=== PATIENT | male | born 1955 | race African-American/Black ===

== ENCOUNTER 2018-10-28 15:37 | Emergency (ER) | payer OTHER ==
--- NOTE | 2018-10-28 15:41 | ER Report ---
History and Physical Time Seen By MD: 15:40 HPI/ROS CHIEF COMPLAINT: Shortness breath, exertional dyspnea, orthopnea HISTORY OF PRESENT ILLNESS: Patient is a 63-year-old male with a history of cigarette smoking, CHF on intermittently on furosemide, hypertension here with complaints of several weeks of persistent progressive dyspnea worse with exertion and laying flat. SPO2 90% on room air, afebrile, hemodynamically stable otherwise. Patient does report a previous history of a viral heart infection suspected to be myocarditis with diminished EF which has reportedly resolved per patient report. EKG showed no ischemic changes at time of evaluation. REVIEW OF SYSTEMS: Constitutional: No fever, no chills. Eyes: No discharge. ENT: No sore throat. Cardiovascular: No chest pain, no palpitations. Respiratory: + Nonproductive cough, + shortness of breath. Gastrointestinal: No abdominal pain, no vomiting. Genitourinary: No hematuria. Musculoskeletal: No back pain. Skin: No rashes. Neurological: No headache. Allergies: Coded Allergies: No Known Drug Allergies (Unverified , 10/28/18) Home Meds Active Scripts Albuterol Sulfate 90 Mcg/Act (PROAIR HFA 90 MCG/ACT) 8.5 Gm Hfa.aer.ad, 2 PUFF I H Q4-6H, #1 INHALER Prov:ASTON CASE DO 10/28/18 Azithromycin (Z-PACK) 250 Mg Tablet, 0 PO QDAY, #6 DOSE-PACK Prov:ASTON CASE DO 10/28/18 Prednisone (PREDNISONE) 50 Mg Tablet, 50 MG PO QDAY for 4 Days, #4 TAB Prov:ASTON CASE DO 10/28/18 Reported Medications Fexofenadine Hcl (TAMELA ALLERGY) 60 Mg Tablet, 30 MG PO BID 10/28/18 Furosemide (LASIX) 20 Mg Tablet, 1 TAB PO PRN, TAB 10/28/18 Montelukast Sodium (SINGULAIR) 10 Mg Tablet, 1 TAB PO QDAY, TAB 10/28/18 Bimatoprost (LUMIGAN) 2.5 Ml Drops, 2.5 ML OP 10/28/18 Amlodipine Besylate (AMLODIPINE BESYLATE) 5 Mg Tablet, 0.5 TAB PO QDAY, TAB 10/28/18 Metoprolol Succinate (METOPROLOL SUCCINATE) 50 Mg Tab.er.24h, 4 TAB PO QDAY, TAB 10/28/18 Lisinopril (LISINOPRIL) 40 Mg Tablet, 40 MG PO QDAY, TAB 10/28/18 Constitutional Vital Sign - Last 24 Hours 10/28/18 10/28/18 10/28/18 10/28/18 15:43 16:00 16:13 16:13 Temp 98.3 Pulse 56 62 48 Resp 20 18 16 B/P (MAP) 186/114 166/102 (123) Pulse Ox 90 91 96 O2 Delivery Room Air Room Air 10/28/18 10/28/18 10/28/18 10/28/18 16:30 16:37 17:00 17:30 Pulse 53 56 64 63 Resp 35 16 31 12 B/P (MAP) 167/90 (115) 145/92 (109) 146/115 (125) Pulse Ox 99 90 85 10/28/18 17:47 Pulse Ox 81 O2 Delivery Room Air Physical Exam General Appearance: The patient is alert, has no immediate need for airway protection and no signs of toxicity. Uncomfortable appearing Eyes: Pupils equal and round no pallor or injection. ENT, Mouth: Mucous membranes are moist. Respiratory: + Decreased thoracic excursion, lungs clear to auscultation. Cardiovascular: Regular rate and rhythm. Gastrointestinal: Abdomen is soft and non tender, no masses, bowel sounds normal. Neurological: No focal deficits Skin: Warm and dry, no rashes. Musculoskeletal: Neck is supple non tender. Extremities are nontender, nonswollen and have full range of motion. DIFFERENTIAL DIAGNOSIS: After history and physical exam differential diagnosis was considered for shortness of breath including but not limited to pulmonary infectious process, COPD, asthma, pulmonary embolus and congestive heart failure. Medical Decision Making Data Points Result Diagram: 10/28/18 1548 10/28/18 1548 Laboratory Hematology Test 10/28/18 15:48 Red Blood Count 5.36 M/uL (4.00-5.60) Mean Corpuscular Volume 88.4 fL (80.0-96.0) Mean Corpuscular Hemoglobin 29.6 pg (26.0-33.0) Mean Corpuscular Hemoglobin Concent 33.5 g/dL (32.0-36.0) Red Cell Distribution Width 15.0 % (11.5-14.5) Mean Platelet Volume 9.9 fL (7.2-11.1) Neutrophils (%) (Auto) 36.9 % (39.4-72.5) Lymphocytes (%) (Auto) 47.7 % (17.6-49.6) Monocytes (%) (Auto) 7.9 % (4.1-12.4) Eosinophils (%) (Auto) 6.0 % (0.4-6.7) Basophils (%) (Auto) 1.5 % (0.3-1.4) Nucleated RBC Relative Count (auto) 0.1 /100WBC Neutrophils # (Auto) 1.9 K/uL (2.0-7.4) Lymphocytes # (Auto) 2.5 K/uL (1.3-3.6) Monocytes # (Auto) 0.4 K/uL (0.3-1.0) Eosinophils # (Auto) 0.3 K/uL (0.0-0.5) Basophils # (Auto) 0.1 K/uL (0.0-0.1) Nucleated RBC Absolute Count (auto) 0.01 K/uL Prothrombin Time 12.6 seconds (12.0-14.4) Prothromb Time International Ratio 0.94 Activated Partial Thromboplast Time 30 seconds (23-35) D-Dimer Quantitative (PE/DVT) 0.35 ug/ml (0-0.50) Blood Gas Patient Temperature 98.3 DEGREES Venous Blood pH 7.38 (7.31-7.41) Venous Blood Partial Pressure CO2 45 mmHg Venous Blood Partial Pressure O2 < 35 mmHg Venous Blood HCO3 27 mmol/L Venous Blood Oxygen Saturation 25 % Venous Blood Base Excess 2 mmol/L Oxygen Liters/Minute Room air Sodium Level 142 mmol/L (137-145) Potassium Level 4.0 mmol/L (3.5-5.0) Chloride Level 107 mmol/L (98-107) Carbon Dioxide Level 28 mmol/L (22-30) Blood Urea Nitrogen 17 mg/dl (9-21) Creatinine 1.70 mg/dl (0.66-1.25) Glomerular Filtration Rate Calc 41.2 Random Glucose 92 mg/dl (75-110) Calcium Level 9.4 mg/dl (8.4-10.2) Total Bilirubin 0.1 mg/dl (0.2-1.3) Aspartate Amino Transf (AST/SGOT) 20 U/L (0-35) Alanine Aminotransferase (ALT/SGPT) 26 U/L (0-56) Alkaline Phosphatase 88 U/L (0-126) Troponin I < 0.012 ng/ml B-Type Natriuretic Peptide 68 pg/ml (0-100) Total Protein 7.1 g/dl (6.3-8.2) Albumin 4.0 g/dl (3.5-5.0) Chemistry Test 10/28/18 15:48 White Blood Count 5.2 k/uL (4.5-11.0) Red Blood Count 5.36 M/uL (4.00-5.60) Hemoglobin 15.9 g/dL (14.0-18.0) Hematocrit 47.4 % (42.0-52.0) Mean Corpuscular Volume 88.4 fL (80.0-96.0) Mean Corpuscular Hemoglobin 29.6 pg (26.0-33.0) Mean Corpuscular Hemoglobin Concent 33.5 g/dL (32.0-36.0) Red Cell Distribution Width 15.0 % (11.5-14.5) Platelet Count 206 K/uL (150-450) Mean Platelet Volume 9.9 fL (7.2-11.1) Neutrophils (%) (Auto) 36.9 % (39.4-72.5) Lymphocytes (%) (Auto) 47.7 % (17.6-49.6) Monocytes (%) (Auto) 7.9 % (4.1-12.4) Eosinophils (%) (Auto) 6.0 % (0.4-6.7) Basophils (%) (Auto) 1.5 % (0.3-1.4) Nucleated RBC Relative Count (auto) 0.1 /100WBC Neutrophils # (Auto) 1.9 K/uL (2.0-7.4) Lymphocytes # (Auto) 2.5 K/uL (1.3-3.6) Monocytes # (Auto) 0.4 K/uL (0.3-1.0) Eosinophils # (Auto) 0.3 K/uL (0.0-0.5) Basophils # (Auto) 0.1 K/uL (0.0-0.1) Nucleated RBC Absolute Count (auto) 0.01 K/uL Prothrombin Time 12.6 seconds (12.0-14.4) Prothromb Time International Ratio 0.94 Activated Partial Thromboplast Time 30 seconds (23-35) D-Dimer Quantitative (PE/DVT) 0.35 ug/ml (0-0.50) Blood Gas Patient Temperature 98.3 DEGREES Venous Blood pH 7.38 (7.31-7.41) Venous Blood Partial Pressure CO2 45 mmHg Venous Blood Partial Pressure O2 < 35 mmHg Venous Blood HCO3 27 mmol/L Venous Blood Oxygen Saturation 25 % Venous Blood Base Excess 2 mmol/L Oxygen Liters/Minute Room air Glomerular Filtration Rate Calc 41.2 Calcium Level 9.4 mg/dl (8.4-10.2) Total Bilirubin 0.1 mg/dl (0.2-1.3) Aspartate Amino Transf (AST/SGOT) 20 U/L (0-35) Alanine Aminotransferase (ALT/SGPT) 26 U/L (0-56) Alkaline Phosphatase 88 U/L (0-126) Troponin I < 0.012 ng/ml B-Type Natriuretic Peptide 68 pg/ml (0-100) Total Protein 7.1 g/dl (6.3-8.2) Albumin 4.0 g/dl (3.5-5.0) Coagulation Test 10/28/18 15:48 Prothrombin Time 12.6 seconds Prothromb Time International Ratio 0.94 Activated Partial Thromboplast Time 30 seconds D-Dimer Quantitative (PE/DVT) 0.35 ug/ml EKG/Imaging EKG Interpretation 12 lead EKG: Sinus bradycardia with ventricular rate 54, QTC 445, no ischemic changes or arrhythmias present Rhythm: Sinus bradycardia Farley: normal QRS: normal ST segments: normal Imaging PATIENT NAME: Lobo Adams : 1955 MR: [id number] V: [id number] EXAM DATE: ORDERING PHYSICIAN: ASTON CASE TECHNOLOGIST: Location: [facility] Patient: Lobo Adams : 1955 Visit/Account:[id number] Date of Sevice: 10/28/2018 CHEST PA LAT INDICATION: RESP DISTRESS COMPARISON: None available FINDINGS: Heart size within normal limits. There is mild pulmonary vascular congestion. There is no focal infiltrate or lobar consolidation. There is no pneumothorax or pleural effusion. IMPRESSION: 1. Mild pulmonary vascular congestion without overt failure ED Course/Re-evaluation ED Course Patient is a 63-year-old male with a prior history of CHF, suspected COPD due to prior smoking history, decreased ejection fraction after what seems to be myocarditis after a viral infection. Patient was given DuoNeb, prednisone, fluid bolus. Patient was noted to have mild hypoxia with oxygen saturations of 87% on room air which remained stable around 90% on ambulation. Chest x-ray showed mild pulmonary congestion with no consolidation. Patient was given an incentive spirometer to maximize pulmonary excursion due to recent history of cartilage tearing which seemingly has diminished his thoracic excursion. Patient is given prescription for prednisone 4 day course, Z-Michael, supplemental oxygen in the interim until patient is able to follow-up with his PCP and cardiology for further evaluation and outpatient setting. VBG was unremarkable. Patient did not have a leukocytosis, electrolytes were unremarkable. Return precautions were pr ovided. Prescription for albuterol inhaler provided. Patient was updated regarding these findings and voiced understanding of plan. Decision to Disposition Date: October 28, 2018 Decision to Disposition Time: 17:57 Depart Departure Latest Vital Signs Vital Signs Date Time Temp Pulse Resp B/P (MAP) Pulse Ox O2 Delivery O2 Flow Rate FiO2 10/28/18 17:47 81 Room Air 10/28/18 17:30 63 12 146/115 (125) 10/28/18 15:43 98.3 Impression: Primary Impression: Hypoxia Additional Impression: Dyspnea Condition: Improved Disposition: HOME OR SELF-CARE New Scripts Albuterol Sulfate 90 Mcg/Act (PROAIR HFA 90 MCG/ACT) 8.5 Gm Hfa.aer.ad 2 PUFF IH Q4-6H, #1 INHALER Prov: ASTON CASE DO 10/28/18 Azithromycin (Z-PACK) 250 Mg Tablet 0 PO QDAY, #6 DOSE-PACK Prov: ASTON CASE DO 10/28/18 Prednisone (PREDNISONE) 50 Mg Tablet 50 MG PO QDAY for 4 Days, #4 TAB Prov: ASTON CASE DO 10/28/18 Departure Forms: ER Transition Record, Home Oxygen, Nebulizer RX, Home Oxygen Company Chosen by Patient: Durable Medical Equipment-Oxygen: Portable Oxygen Gas Reason for Use/Diagnosis: Hypoxia, increasing dyspnea, COPD exacerbation Medications Reconciliation, Patient Portal Information Patient Instructions: Dyspnea (GEN) Additional Instructions: Please follow-up with your primary care provider and cardiology within the next 24-48 hours. Please return immediately if you develop increasing shortness breath, fevers, chills, chest pains, nausea, vomiting. Please take 50 mg of prednisone daily for the next 4 days, please take Z-Michael as prescribed. Please utilize your incentive spirometer in order to maximize lung expansion and avoid pulmonary infection. Please use supplemental oxygen until you're able to follow- up with her primary care provider. Problem Qualifiers ASTON CASE DO October 28, 2018 15:41
[2018-10-28] MEDS ORDERED: METO50TA19 PO (15:49)
[2018-10-28] MEDS ORDERED: FEXO-72 PO (15:49)
[2018-10-28] MEDS ORDERED: BIMA2.5D5 OP (15:49)
[2018-10-28] MEDS ORDERED: FURO20TA19 PO (15:49)
[2018-10-28] MEDS ORDERED: MONT10TA PO (15:49)
[2018-10-28] MEDS ORDERED: LISI-374 PO (15:49)
[2018-10-28] MEDS ORDERED: AMLO-125 PO (15:49)
[2018-10-28] MEDS ORDERED: NS(*) 0.9% 500 ML BAG 500 ML IV ONE (15:55)
[2018-10-28] MEDS ORDERED: predniSONE 20 MG TAB PO ONE (15:55)
--- NOTE | 2018-10-28 16:00 | EKG ---
FACILITY: [facility] PATIENT NAME: ZEINA PEREZ : [id number] MR: [id number] V: [id number] EXAM DATE: ORDERING PHYSICIAN: ASTON CASE TECHNOLOGIST: RETA Test Reason : SOB Blood Pressure : / mmHG Vent. Rate : 054 BPM Atrial Rate : 054 BPM P-R Int : 142 ms QRS Dur : 092 ms QT Int : 470 ms P-R-T Axes : 063 -07 028 degrees QTc Int : 445 ms Sinus bradycardia Nonspecific ST and T wave abnormality Abnormal ECG No previous ECGs available Confirmed by Addy Kenney ([id number]) on 10/28/2018 8:00:33 PM Referred By: MANPREET Confirmed By:Addy Rosales
[2018-10-28 16:12] LABS: PLATELET COUNT, AUTOMATED 206 K/uL (150-450)
[2018-10-28] MEDS: ALBUTEROL/IPRATROPIUM 3 ML NEB NEB SCH ×2 (16:12→16:30)
[2018-10-28 16:17] LABS: INR 0.94
--- NOTE | 2018-10-28 17:17 | RADIOLOGY IMAGING REPORT ---
FACILITY: [facility] PATIENT NAME: Lobo Adams : 1955 MR: [id number] V: [id number] EXAM DATE: ORDERING PHYSICIAN: ASTON CASE TECHNOLOGIST: Location: [facility] [place] Patient: Lobo Adams : 1955 Visit/Account:[id number] Date of Sevice: 10/28/2018 CHEST PA LAT INDICATION: RESP DISTRESS COMPARISON: None available FINDINGS: Heart size within normal limits. There is mild pulmonary vascular congestion. There is no focal infiltrate or lobar consolidation. There is no pneumothorax or pleural effusion. IMPRESSION: 1. Mild pulmonary vascular congestion without overt failure Report Dictated By: Octavio Corral at 10/28/2018 5:12 PM Report E-Signed By: Octavio Corral at 10/28/2018 5:13 PM [id number]
[2018-10-28] MEDS ORDERED: ALBU8.5H IH (17:53)
[2018-10-28] MEDS ORDERED: AZIT-17 PO (17:53)
[2018-10-28] MEDS ORDERED: PRED50TA22 PO (17:53)
[2018-10-28 18:30] VITALS: BP 131/69
== END 2018-10-28 20:00 | disposition home or self-care (01) ==
LOC: ER 16:09
DX: R09.02 Hypoxemia (principal); R06.00 Dyspnea, unspecified
CPT/HCPCS: 71046; 82803; 83880; 84484; 85025; 85379; 85610; 85730; 93005; 94640; 96360; 99284; J7040; J7512; J7620; 82040; 82247; 82310; 82374; 82435; 82565; 82947; 84075; 84132; 84155; 84295; 84450; 84460; 84520

== ENCOUNTER 2019-01-09 18:03 | Observation (INO) | payer OTHER ==
[~2019-01-09] VITALS: Ht 182.9 cm; Wt 59.0 kg
[~2019-01-09 18:03] MED LIST: ALBU8.5H IH; AMLO-125 PO; AZIT-17 PO; BIMA2.5D5 OP; FEXO-72 PO; FURO20TA19 PO; LISI-374 PO; METO50TA19 PO; MONT10TA PO; PRED50TA22 PO
--- NOTE | 2019-01-09 18:22 | ER Report ---
History and Physical Time Seen By MD: 18:19 HPI/ROS CHIEF COMPLAINT: heat exhaustion and dehydration HISTORY OF PRESENT ILLNESS: This is a 63 year old male. He came to the ER today, brought in by a friend. He says he is dehydrated and has not had anything to drink since 0600 yesterday. Had been at a property outside of town, cutting grass, cleaning trailer with many mice and horrible state. He has been short of breath, he thinks maybe allergies, or mild COPD. He also has history of heart failure and is worried about his heart. Altered mental status, often talking in circles and not able to give details. Starts to become very emotional and talks about past meth use and had friends last night that gave him "liliya". He said he wanted to try Ecstasy, but they did not have any. He thinks what he took may have had meth in it. He is not oriented to date, but to self and place. He denies fevers or chills. He denies any pain. He denies headache. He has not urinated today. Denies diarrhea. REVIEW OF SYSTEMS: Other than above, negative or unable to obtain Allergies: Coded Allergies: No Known Drug Allergies (Unverified , 01/09/19) Home Meds Active Scripts Albuterol Sulfate 90 Mcg/Act (PROAIR HFA 90 MCG/ACT) 8.5 Gm Hfa.aer.ad, 2 PUFF IH Q4-6H, #1 INHALER Prov:ASTON CASE DO 10/28/18 Azithromycin (Z-PACK) 250 Mg Tablet, 0 PO QDAY, #6 DOSE-PACK Prov:ASTON CASE DO 10/28/18 Prednisone (PREDNISONE) 50 Mg Tablet, 50 MG PO QDAY for 4 Days, #4 TAB Prov:ASTON CASE DO 10/28/18 Reported Medications Fexofenadine Hcl (TAMELA ALLERGY) 60 Mg Tablet, 30 MG PO BID 10/28/18 Furosemide (LASIX) 20 Mg Tablet, 1 TAB PO PRN, TAB 10/28/18 Montelukast Sodium (SINGULAIR) 10 Mg Tablet, 1 TAB PO QDAY, TAB 10/28/18 Bimatoprost (LUMIGAN) 2.5 Ml Drops, 2.5 ML OP 10/28/18 Amlodipine Besylate (AMLODIPINE BESYLATE) 5 Mg Tablet, 0.5 TAB PO QDAY, TAB 10/28/18 Metoprolol Succinate (METOPROLOL SUCCINATE) 50 Mg Tab.er.24h, 4 TAB PO QDAY, TAB 10/28/18 Lisinopril (LISINOPRIL) 40 Mg Tablet, 40 MG PO QDAY, TAB 10/28/18 Reviewed Nurses Notes: Yes Constitutional Vital Sign - Last 24 Hours 01/09/19 01/09/19 01/09/19 01/09/19 18:10 18:18 18:30 18:33 Temp 97.8 Pulse 77 76 57 Resp 16 28 13 B/P (MAP) 149/96 155/94 (114) Pulse Ox 90 97 94 O2 Delivery Room Air 01/09/19 01/09/19 01/09/19 01/09/19 18:48 18:57 18:57 19:03 Pulse 55 49 80 Resp 11 20 18 Pulse Ox 100 95 99 O2 Delivery Nasal Cannula O2 Flow Rate 2.0 01/09/19 01/09/19 01/09/19 01/09/19 19:11 19:18 19:38 19:48 Pulse 50 86 84 Resp 18 32 17 B/P (MAP) 187/122 (143) Pulse Ox 98 93 01/09/19 01/09/19 01/09/19 01/09/19 20:00 20:05 20:20 20:30 Pulse 75 60 Resp 41 18 B/P (MAP) 172/120 (137) 180/107 (131) Pulse Ox 73 97 01/09/19 01/09/19 01/09/19 01/09/19 20:35 20:40 20:55 21:00 Pulse 64 64 67 Resp 19 18 22 B/P (MAP) 177/100 (125) Pulse Ox 95 84 97 01/09/19 01/09/19 01/09/19 01/09/19 21:10 21:25 21:30 21:40 Pulse 62 62 60 Resp 20 18 18 B/P (MAP) 169/109 (129) Pulse Ox 94 97 89 01/09/19 01/09/19 01/09/19 01/09/19 21:55 22:00 22:30 23:00 Pulse 49 52 58 77 Resp 16 18 18 31 B/P (MAP) 148/87 (107) 119/79 (92) 150/115 (127) Pulse Ox 100 100 100 01/09/19 01/10/19 23:30 00:00 Pulse 80 Resp 10 B/P (MAP) 150/97 (114) Pulse Ox 94 Intake and Output 01/09/19 01/09/19 01/10/19 15:03 23:03 07:03 Intake Total 1000 ml Balance 1000 ml Physical Exam General Appearance: The patient is alert. No immediate need for airway protection. Very emotionally labile, crying at times. Very tangential in his speech. Eyes: Pupils are equal, round. Reactive to light. No pallor, injection or icterus. Extraocular movements are intact. ENT: Mucous membranes are dry. Normal oral mucosa. Posterior oropharynx is normal. Normal tympanic membranes and canals. Neck: Supple and non tender. Respiratory: Lungs had some mild expiratory wheezes, improved after DuoNeb treatment and Solu-Medrol. Normal oxygen saturations while awake, but desats a little with sleeping. Cardiovascular: Regular rate and rhythm. No murmurs, gallops or rubs. Normal capillary refill. No edema. Gastrointestinal: Abdomen is soft and non tender. Nondistended. Normal active bowel sounds. No CVA tenderness. Neurological: Alert and oriented x2. Cranial nerves II through XII show no acute deficits on my exam. No focal neurologic deficits in the extremities. Skin: Warm and dry. No rashes. Musculoskeletal: Extremities are nontender. No tenderness in palpation of the cervical, thoracic and lumbar spine. DIFFERENTIAL DIAGNOSIS: After history and physical exam, differential diagnosis was considered for patient with some confusion with report of dehydration, and some shortness of breath. Medical Decision Making Data Points Result Diagram: 01/09/19 1812 01/09/19 1812 Laboratory Hematology Test 01/09/19 18:12 White Blood Count 6.2 k/uL (4.5-11.0) Red Blood Count 5.25 M/uL (4.00-5.60) Hemoglobin 16.0 g/dL (14.0-18.0) Hematocrit 46.7 % (42.0-52.0) Mean Corpuscular Volume 89.1 fL (80.0-96.0) Mean Corpuscular Hemoglobin 30.5 pg (26.0-33.0) Mean Corpuscular Hemoglobin Concent 34.2 g/dL (32.0-36.0) Red Cell Distribution Width 14.1 % (11.5-14.5) Platelet Count 198 K/uL (150-450) Mean Platelet Volume 9.3 fL (7.2-11.1) Neutrophils (%) (Auto) 63.2 % (39.4-72.5) Lymphocytes (%) (Auto) 23.5 % (17.6-49.6) Monocytes (%) (Auto) 11.1 % (4.1-12.4) Eosinophils (%) (Auto) 1.8 % (0.4-6.7) Basophils (%) (Auto) 0.4 % (0.3-1.4) Nucleated RBC Relative Count (auto) 0.0 /100WBC Neutrophils # (Auto) 3.9 K/uL (2.0-7.4) Lymphocytes # (Auto) 1.5 K/uL (1.3-3.6) Monocytes # (Auto) 0.7 K/uL (0.3-1.0) Eosinophils # (Auto) 0.1 K/uL (0.0-0.5) Basophils # (Auto) 0.0 K/uL (0.0-0.1) Nucleated RBC Absolute Count (auto) 0.00 K/uL Chemistry Test 01/09/19 18:12 Sodium Level 140 mmol/L (137-145) Potassium Level 3.5 mmol/L (3.5-5.0) Chloride Level 103 mmol/L (98-107) Carbon Dioxide Level 24 mmol/L (22-30) Blood Urea Nitrogen 27 mg/dl (9-21) Creatinine 1.80 mg/dl (0.66-1.25) Glomerular Filtration Rate Calc 38.6 Random Glucose 90 mg/dl (75-110) Lactate 1.0 mmol/L (0.7-2.1) Calcium Level 9.3 mg/dl (8.4-10.2) Total Bilirubin 0.7 mg/dl (0.2-1.3) Aspartate Amino Transf (AST/SGOT) 48 U/L (0-35) Alanine Aminotransferase (ALT/SGPT) 42 U/L (0-56) Alkaline Phosphatase 86 U/L (0-126) Troponin I < 0.012 ng/ml C-Reactive Protein 1.8 mg/dl (<1.0) B-Type Natriuretic Peptide 48 pg/ml (0-100) Total Protein 7.7 g/dl (6.3-8.2) Albumin 4.5 g/dl (3.5-5.0) Toxicology Test 01/09/19 18:12 Serum Alcohol < 10 mg/dl EKG/Imaging Imaging CT Head without contrast Indication: Altered mental status. Comparison: None available. Technique: Axial CT images were obtained through the brain from the skull base to the vertex without administration of IV contrast. One of the following dose optimization techniques was utilized in the performance of this exam: Automated exposure control; adjustment of the mA and/or kV according to the patient's size; or use of an iterative reconstruction technique. Specific details can be referenced in the facility's radiology CT exam operational policy. Findings: No evidence of suspicious mass, mass effect, or midline shift. No acute intracranial hemorrhage or acute territorial infarction. Somewhat prominent calcification along the anterior aspect of the falx with no significant mass effect. Mild cerebral volume loss. Small amount of multifocal white matter hypoattenuation likely related to chronic small vessel ischemic disease. Skull is nonacute. Globes and orbits are unremarkable. The visualized paranasal sinuses and mastoid air spaces are clear. IMPRESSION: 1. No acute intracranial abnormality. 2. Mild cerebral volume loss and suspected chronic White matter disease. Report Dictated By: Giuseppe Shah MD at 01/09/2019 11:51 PM CHEST SINGLE AP Indication: Shortness of breath.. Comparison: 10/28/2018. Findings: Cardiomediastinal silhouette and pulmonary vessels within normal limits for the technique. There is no focal infiltrate or lobar consolidation. No pneumothorax or pleural effusion. No nodule. Upper abdomen is unremarkable. No acute bony abnormality. IMPRESSION: 1. No acute cardiopulmonary process. Report Dictated By: Yan Barrera at 01/09/2019 7:55 PM ED Course/Re-evaluation Clinical Indication for ER IV: Hydration, IV Access ED Course After DuoNeb and Solu-Medrol, the patient's breathing was much better. No hypoxi a other when he sleeping and he requires a couple liters of oxygen. Later on during his stay, he did talk about taking an unknown recreational substance that sounds like ecstasy. We gave him a liter of normal saline as a bolus and then a slow second liter to make sure he didn't fluid overload him. X-ray and labs fairly unremarkable. Discussed the case with our hospitalist who came to the ER to evaluate. We added a head CT which was negative. Chest x-ray negative. Admitted to [facility] [place] for some mild altered mental status. Dehydration seems like it's better with the fluids given and will do oral fluids at this point. Decision to Disposition Date: Jan 10, 2019 Decision to Disposition Time: 23:02 Depart Departure Latest Vital Signs Vital Signs Date Time Temp Pulse Resp B/P (MAP) Pulse Ox O2 Delivery O2 Flow Rate FiO2 01/10/19 00:00 80 10 94 01/09/19 23:30 150/97 (114) 01/09/19 18:57 Nasal Cannula 2.0 01/09/19 18:10 97.8 Impression: Primary Impression: Dehydration after exertion Additional Impression: Altered mental status, unspecified Condition: Improved Disposition: Admitted from ER Problem Qualifiers Additional Impression: Altered mental status, unspecified Altered mental status type: unspecified Qualified Codes: R41.82 - Altered mental status, unspecified SHAKIRA MOISE MD Jan 09, 2019 18:22
[2019-01-09] MEDS ORDERED: NS(*) 0.9% 1000 ML BAG 1,000 ML IV ONE (18:30)
[2019-01-09] MEDS ORDERED: ALBUTEROL/IPRATROPIUM 3 ML NEB NEB ONE (18:35)
[2019-01-09 18:40] LABS: PLATELET COUNT, AUTOMATED 198 K/uL (150-450)
[2019-01-09] MEDS ORDERED: methylPREDNIS SUCC 125 MG/2ML IVP ONE (19:00)
--- NOTE | 2019-01-09 20:04 | RADIOLOGY IMAGING REPORT ---
FACILITY[place] [facility] [place] PATIENT NAME: Lobo Adams : 1955 MR: [id number] V: [id number] EXAM DATE: ORDERING PHYSICIAN: SHAKIRA MOISE TECHNOLOGIST: Location: [facility] Patient: Lobo Adams : 1955 Visit/Account:[id number] Date of Sevice: 01/09/2019 CHEST SINGLE AP Indication: Shortness of breath.. Comparison: 10/28/2018. Findings: Cardiomediastinal silhouette and pulmonary vessels within normal limits for the technique. There is no focal infiltrate or lobar consolidation. No pneumothorax or pleural effusion. No nodule. Upper abdomen is unremarkable. No acute bony abnormality. IMPRESSION: 1. No acute cardiopulmonary process. Report Dictated By: Yan Barrera at 01/09/2019 7:55 PM Report E-Signed By: Yan Barrera at 01/09/2019 7:56 PM WSN:[id number]
[2019-01-09] MEDS ORDERED: INFLUENZA VIRUS VAC 0.5ML SYR IM ONLY ONE (23:30)
[2019-01-09] MEDS ORDERED: ALBUTEROL 2.5 MG/3 ML NEB NEB PRN (23:30)
[2019-01-09] MEDS ORDERED: LORazepam 2 MG/ML VIAL IVP PRN (23:30)
[2019-01-09] MEDS ORDERED: amLODIPine BESYL(*) 5 MG TAB PO SCH (23:30)
[2019-01-09] MEDS ORDERED: hydrOXYzine 25 MG TAB PO ONE (23:30)
--- NOTE | 2019-01-10 00:03 | RADIOLOGY IMAGING REPORT ---
FACILITY: [facility] PATIENT NAME: Lobo Adams : 1955 MR: [id number] V: [id number] EXAM DATE: ORDERING PHYSICIAN: SHAKIRA MOISE TECHNOLOGIST: Location: [facility] [place] Patient: Lobo Adams : 1955 Visit/Account:[id number] Date of Sevice: 01/09/2019 CT Head without contrast Indication: Altered mental status. Comparison: None available. Technique: Axial CT images were obtained through the brain from the skull base to the vertex without administration of IV contrast. One of the following dose optimization techniques was utilized in th e performance of this exam: Automated exposure control; adjustment of the mA and/or kV according to t he patient's size; or use of an iterative reconstruction technique. Specific details can be referen antoinette in the facility's radiology CT exam operational policy. Findings: No evidence of suspicious mass, mass effect, or midline shift. No acute intracranial hemorrhage or acute territorial infarction. Somewhat prominent calcification along the anterior aspect of the falx with no significant mass effec t. Mild cerebral volume loss. Small amount of multifocal white matter hypoattenuation likely related to chronic small vessel ischemic disease. Skull is nonacute. Globes and orbits are unremarkable. The visualized paranasal sinuses and mastoid air spaces are clear. IMPRESSION: 1. No acute intracranial abnormality. 2. Mild cerebral volume loss and suspected chronic White matter disease. Report Dictated By: Giuseppe Shah MD at 01/09/2019 11:51 PM Report E-Signed By: Giuseppe Shah MD at 01/09/2019 11:56 PM WSN:[id number]
--- NOTE | 2019-01-10 00:11 | History & Physical ---
History of Present Illness History of Present Illness 63yo male with a h/o HFrEF, COPD, and HIV who came to the ER for confusion. The history is from the ER provider and some from the patient. There was a friend who brought him to the ER, but had left. Either today or yesterday, he was cleaning out a trailer home that was very dirty and full of mice for most of the day. He didn't drink any water, so was concerned about heat exhaustion. The patient reports that either today or yesterday, he took some ecstasy that he got from his nephew. He had many hallucinations that were plausible and upsetting. He last drank alcohol a couple nights ago and drinks occasionally. He does have a h/o methamphetamine use, but has been clean since 2016. He reports that he has mild some right flank pain that started in the ER. He denies chills, neck pain, chest pain, SOB, LE edema. He has a mild headache and nausea. He chronically has loose stools which is unchanged. When he first got to the ER, he reported some SOB. He received 2 liters of IVF, methylprednisolone and a DuoNeb. History Problems: (1) HIV (human immunodeficiency virus infection) Status: Chronic (2) HFrEF (heart failure with reduced ejection fraction) Status: Chronic (3) HTN (hypertension) Status: Chronic (4) Depression Status: Chronic Home Meds Active Scripts Albuterol Sulfate 90 Mcg/Act (PROAIR HFA 90 MCG/ACT) 8.5 Gm Hfa.aer.ad, 2 PUFF IH Q4-6H, #1 INHALER Prov:ASTON CASE DO 10/28/18 Azithromycin (Z-PACK) 250 Mg Tablet, 0 PO QDAY, #6 DOSE-PACK Prov:ASTON CASE DO 10/28/18 Prednisone (PREDNISONE) 50 Mg Tablet, 50 MG PO QDAY for 4 Days, #4 TAB Prov:ASTON CASE DO 10/28/18 Reported Medications Fexofenadine Hcl (TAMELA ALLERGY) 60 Mg Tablet, 30 MG PO BID 10/28/18 Furosemide (LASIX) 20 Mg Tablet, 1 TAB PO PRN, TAB 10/28/18 Montelukast Sodium (SINGULAIR) 10 Mg Tablet, 1 TAB PO QDAY, TAB 10/28/18 Bimatoprost (LUMIGAN) 2.5 Ml Drops, 2.5 ML OP 10/28/18 Amlodipine Besylate (AMLODIPINE BESYLATE) 5 Mg Tablet, 0.5 TAB PO QDAY, TAB 10/28/18 Metoprolol Succinate (METOPROLOL SUCCINATE) 50 Mg Tab.er.24h, 4 TAB PO QDAY, TAB 10/28/18 Lisinopril (LISINOPRIL) 40 Mg Tablet, 40 MG PO QDAY, TAB 10/28/18 Allergies: Coded Allergies: No Known Drug Allergies (Unverified , 01/09/19) Review of Systems Other Limited based on his mental status Exam Vital Signs Vital Signs Date Time Temp Pulse Resp B/P (MAP) Pulse Ox O2 Delivery O2 Flow Rate FiO2 01/09/19 21:55 49 16 100 01/09/19 21:30 169/109 (129) 01/09/19 18:57 Nasal Cannula 2.0 01/09/19 18:10 97.8 General Appearance: Other (Eyes are closed. Breathing comfortably. Tearful) Neuro: Other (He knows where he is, the month and the day of the week. He thought it was 2009. He has not facial droop. He has symmetric extremity strength. He is tangential with answers. Answers are very rambling and difficult to follow. Unable to give any clear details about the couple days before admission.) Eyes: Other (Haziness in pupils bilaterally. Appear equal) ENT: Oropharynx Clear (tacky mm), Posterior Pharynx Clear Neck: Other (Able to touch his chin to chest without pain) Cardiovascular: Regular Rate and Rhythm (borderline velma) Respiratory: Clear to Auscultation GI: Abd Soft and Non-Tender (but he will wince with movements and initial palpation. However, once he is used to the palpation, he doesn't wince anymore) : No CVA Tenderness Extremities: No Edema Integumentary: No Jaundice, No Cyanosis Medical Decision Making Data Points Result Diagram: 01/09/19181101/09/191811 Item Value Date Time Serum Alcohol < 10 mg/dl 01/09/191811 B-Type Natriuretic Peptide 48 pg/ml 01/09/191811 C-Reactive Protein 1.8 mg/dl H 01/09/191811 Troponin I < 0.012 ng/ml 01/09/19 181 Total Protein 7.7 g/dl 01/09/19 1812 Albumin 4.5 g/dl 01/09/19 1812 Total Bilirubin 0.7 mg/dl 01/09/19 1812 Aspartate Amino Transf (AST/SGOT) 48 U/L H 01/09/19 1812 Alanine Aminotransferase (ALT/SGPT) 42 U/L 01/09/19 181 Alkaline Phosphatase 86 U/L 01/09/19 1812 Calcium Level 9.3 mg/dl 01/09/19 1812 Lactate 1.0 mmol/L 01/09/19 1812 Blood Urea Nitrogen 27 mg/dl H 01/09/19 1812 Creatinine 1.80 mg/dl H 01/09/19 1812 Blood Urea Nitrogen 17 mg/dl 10/28/18 1548 Creatinine 1.70 mg/dl H 10/28/18 1548 Glomerular Filtration Rate Calc 38.6 01/09/191811 Random Glucose 90 mg/dl 01/09/191811 Mean Platelet Volume 9.3 fL 01/09/19 181 Lymphocytes (%) (Auto) 23.5 % 01/09/19 1812 Neutrophils (%) (Auto) 63.2 % 01/09/19 181 Monocytes (%) (Auto) 11.1 % 01/09/19 181 Eosinophils (%) (Auto) 1.8 % 01/09/191811 Mean Corpuscular Volume 89.1 fL 01/09/191811 EKG / Imaging Imaging CXR - 1. No acute cardiopulmonary process. Assessment and Plan Problems: (1) Altered mental status Status: Acute Assessment & Plan: He presented with acute change in mental status over an unclear amount of time, but likely no more than 36 hours. There doesn't appear to be an infectious etiology, but a UA is still pending. He consistently reports that he took ecstasy sometime in the past 36 hours. He is very tearful and reports having disturbing hallucinations prior to coming to the hospital. He is tangential and rambling with his history so it is difficult to get a clear picture. A friend brought him to the ER, who gave a history that the patient had been cleaning a dirty, mouse infested trailer recently, didn't drink water and possibly had heat exhaustion. The patient denies any suicidal ideation. He is not reporting any excessive intake of medications. He received #30 of Tramadol on 12/07 per his external medical history. He last drank alcohol a couple nights ago and drinks occasionally. He does have a h/o methamphetamine use, but has been clean since 2016. He will be observed on the medical floor. He will be given 25mg of hydroxyzine for anxiety now and prn Ativan. He is to get a head CT before leaving the ER. Check a CPK because of the ecstasy use. (2) HFrEF (heart failure with reduced ejection fraction) Status: Chronic Assessment & Plan: He reports that he had an EF of 10%, but that has improved to about 45%. He is chronically on Toprol and lisinopril which will be continued with parameters. He has been given 2 liters of crystalloid in the ER, so will be saline locked. BNP was wnl upon admission. Will follow for symptoms of exacerbation. (3) HIV (human immunodeficiency virus infection) Status: Chronic Assessment & Plan: Chronically on Genvoya 150, which will be continued if someone can bring it in for him. (4) Depression Status: Chronic Assessment & Plan: He is chronically on sertraline and trazodone, which will be held for the remote concern of serotonin syndrome. He received #30 of Tramadol on 12/07 per his external medical history. (5) HTN (hypertension) Status: Chronic Assessment & Plan: His BP is high so will give him a dose of amlodipine now and continue. Toprol and Lisinopril to be continued. (6) CKD (chronic kidney disease) stage 3, GFR 30-59 ml/min Status: Chronic Assessment & Plan: His creatinine was 1.7 in October. It is 1.8 today. (7) CKD (chronic kidney disease) Copies to: MILADYS JOHNSTON DO ; Venous Thromboembolism Antithrombotics Is Pt On Any Antithrombotics?: No Exam Sepsis Risk: No Definite Risk RUBÉN CARDENAS MD Jan 10, 2019 00:11
[2019-01-10 00:49] VITALS: BP 93/70
[2019-01-10] MEDS ORDERED: SERT20OR6 PO (01:07)
[2019-01-10] MEDS ORDERED: TRAM-420 PO (01:07)
[2019-01-10] MEDS ORDERED: TRAZ50TA52 PO (01:07)
[2019-01-10 02:00] VITALS: BP 133/72
[2019-01-10 06:00] LABS: PLATELET COUNT, AUTOMATED 174 K/uL (150-450)
[2019-01-10 06:55] VITALS: BP 126/81
[2019-01-10] MEDS ORDERED: LISINOPRIL 20 MG TAB PO SCH (09:00)
[2019-01-10] MEDS ORDERED: METOPROLOL SUCC XL 50 MG TABCR 50 MG TAB.ER.24H PO SCH (09:00)
[2019-01-10] MEDS ORDERED: GENVOYA PO SCH (09:00)
--- NOTE | 2019-01-10 10:36 | NUR ---
Physical Therapy Impression PT eval complete. Pt slightly impulsive and emotionally labile throughout session, but this improved towards end of session. Megan bed mobility, SBA/Megan transfers with RW. Pt initially unsteady with first STS transfer. SBA/Megan ambulation x500' with and without RW, pt with no LOB and good kaitlin demonstrated. PT instruction for stair negotiation, pt completed 3 stairs asc/desc with good step over gait pattern. PT goals met with initial visit, no further PT visits planned. Rec d.c home with no further PT needs. Physical Therapy Goals 1: Pt to complete bed mobility with Megan 2: Pt to complete transfers with Megan 3: Pt to ambulate 200' with Megan 4: Pt to asc/desc 3 stairs with CGA Patient's Goals
[2019-01-10] MEDS ORDERED: ELVI1TAB3 PO (10:50)
[2019-01-10 11:25] VITALS: BP 109/61
--- NOTE | 2019-01-10 11:25 | Hospitalist Depart ---
Discharge Summary Reason for Hosp/Final Diag: (1) Altered mental status Status: Acute Hospital Course & Plan: He presented with acute change in mental status over an unclear amount of time, but likely no more than 36 hours. There doesn't appear to be an infectious etiology. He consistently reports that he took ecstasy sometime in the past 36 hours. He is very tearful and reports having disturbing hallucinations prior to coming to the hospital. He was tangential and rambling with his history so it is difficult to get a clear picture upon admission. A friend brought him to the ER, who gave a history that the patient had been cleaning a dirty, mouse infested trailer recently, didn't drink water and possibly had heat exhaustion. The patient denies any suicidal ideation. He is not reporting any excessive intake of medications. He received #30 of Tramadol on 12/07 per his external medical history. He last drank alcohol a couple nights ago and drinks occasionally. He does have a h/o methamphetamine use, but has been clean since 2016. He was observed on the medical floor and his mental status has cleared. He was given 25mg of hydroxyzine for anxiety upon admission and prn Ativan was never given. Head CT negative. He will follow up with his counselor, likely related to dehydration and drug use. (2) HFrEF (heart failure with reduced ejection fraction) Status: Chronic Hospital Course & Plan: He reports that he had an EF of 10%, but that has improved to about 45%. He is chronically on Toprol and lisinopril which will be continued with parameters. He has been given 2 liters of crystalloid in the ER, so will be saline locked. BNP was wnl upon admission. (3) HIV (human immunodeficiency virus infection) Status: Chronic Hospital Course & Plan: Chronically on Genvoya 150. (4) Depression Status: Chronic Hospital Course & Plan: He is chronically on sertraline and trazodone. He received #30 of Tramadol on 12/07 per his external medical history. (5) HTN (hypertension) Status: Chronic Hospital Course & Plan: His BP is high so he was given a dose of amlodipine upon admission and continue. Toprol and Lisinopril to be continued. (6) CKD (chronic kidney disease) stage 3, GFR 30-59 ml/min Status: Chronic Hospital Course & Plan: His creatinine was 1.7 in October. It is 1.8 upon admission, down to 1.2 today. (7) CKD (chronic kidney disease) Departure Latest Vital Signs Vital Signs 01/10/19 01/10/19 01/10/19 06:55 07:33 07:36 Temp 97.9 Pulse 61 Resp 20 B/P (MAP) 126/81 (96) Pulse Ox 97 O2 Delivery Nasal Cannula O2 Flow Rate 2.0 Weight (Pounds): 130 Result Diagram: 01/10/1951401/10/19514 Condition: Improved Discharge: Home, Self Care Discharge Instructions Home Meds Reported Medications Elviteg/Natalie/Emtric/Tenofo Ala (Genvoya Tablet) 150 Mg-150 Mg-200 Mg-10 Mg Tablet, 1 TAB PO QDAY 01/10/19 Tramadol Hcl (TRAMADOL HCL) 50 Mg Tablet, 50-100 MG PO Q4-6H for PAIN, TAB 01/10/19 Sertraline Hcl (ZOLOFT) 20 Mg/1 Ml Oral.conc, 20 MG PO QHS 01/10/19 Trazodone Hcl (TRAZODONE HCL) 50 Mg Tablet, 50 MG PO QHS 01/10/19 Fexofenadine Hcl (TAMELA ALLERGY) 60 Mg Tablet, 30 MG PO BID 10/28/18 Furosemide (LASIX) 20 Mg Tablet, 1 TAB PO PRN, TAB 10/28/18 Montelukast Sodium (SINGULAIR) 10 Mg Tablet, 1 TAB PO QDAY, TAB 10/28/18 Bimatoprost (LUMIGAN) 2.5 Ml Drops, 2.5 ML OP 10/28/18 Amlodipine Besylate (AMLODIPINE BESYLATE) 5 Mg Tablet, 0.5 TAB PO QDAY, TAB 10/28/18 Metoprolol Succinate (METOPROLOL SUCCINATE) 50 Mg Tab.er.24h, 4 TAB PO QDAY, TAB 10/28/18 Lisinopril (LISINOPRIL) 40 Mg Tablet, 40 MG PO QDAY, TAB 10/28/18 Discontinued Scripts Albuterol Sulfate 90 Mcg/Act (PROAIR HFA 90 MCG/ACT) 8.5 Gm Hfa.aer.ad, 2 PUFF IH Q4-6H, #1 INHALER Prov:ASTON CASE DO 10/28/18 Azithromycin (Z-PACK) 250 Mg Tablet, 0 PO QDAY, #6 DOSE-PACK Prov:ASTON CASE DO 10/28/18 Prednisone (PREDNISONE) 50 Mg Tablet, 50 MG PO QDAY for 4 Days, #4 TAB Prov:ASTON CASE DO 10/28/18 Diet: Regular Activity: As Tolerated Special Instructions: Try to abstain from alcohol or drugs. Follow up with your counselor this week. Venous Thromboembolism Antithrombotics Is Pt On Any Antithrombotics?: No AILEEN GAONA POULTRY SERVICE TECHNICIAN Jan 10, 2019 11:25
== END 2019-01-10 10:50 | disposition home or self-care (01) ==
LOC: ER 18:24 → INTOOBSV 01-10 00:23 → MED 01-10 00:23 → EDBEDREQSVC 01-10 00:24
PROVIDERS: ADMIT Internal Medicine; ATTEND Internal Medicine
DX: R41.82 Altered mental status, unspecified (principal); E86.0 Dehydration; I12.9 Hypertensive chronic kidney disease with stage 1 through stage 4 chronic kidney disease, or unspecified chronic kidney disease; N18.9 Chronic kidney disease, unspecified; B20 Human immunodeficiency virus [HIV] disease; N18.3 Chronic kidney disease, stage 3 (moderate); F32.9 Major depressive disorder, single episode, unspecified; I50.22 Chronic systolic (congestive) heart failure
CPT/HCPCS: 36415; 70450; 71045; 80320; 82550; 83605; 83880; 84484; 85025; 86140; 94640; 96361; 96374; 97161; 99284; G0378; J2930; J7030; J7620; 82040; 82247; 82310; 82374; 82435; 82565; 82947; 84075; 84132; 84155; 84295; 84450; 84460; 84520

== ENCOUNTER 2019-01-17 06:10 | Emergency (ER) | payer OTHER ==
[~2019-01-17 06:10] MED LIST changes: +ELVI1TAB3 PO; +SERT20OR6 PO; +TRAM-420 PO; +TRAZ50TA52 PO
--- NOTE | 2019-01-17 06:15 | ER Report ---
History and Physical Time Seen By MD: 06:10 (JONELLE HOANG DO) Time Seen By MD: 07:03 (ASTON CASE DO) HPI/ROS CHIEF COMPLAINT: Altered mental status HISTORY OF PRESENT ILLNESS: 63-year-old black male found crawling over cars out of control with agitation with psychotic expressions. Police responded to his residence after EMS brought him in to the emergency department and found methamphetamine paraphernalia. Patient is suspected to of been abusing methamphetamines. It is having acute psychosis related to that. EMS administered Ativan 4 mg IV. He is quite somnolent on arrival. REVIEW OF SYSTEMS: Unable to obtain due to sedation (JONELLE HOANG DO) HPI/ROS Please see Dr. Hoang's note (ASTON CASE DO) Allergies: Coded Allergies: No Known Drug Allergies (Unverified , 01/09/19) Home Meds Reported Medications Elviteg/Natalie/Emtric/Tenofo Ala (Genvoya Tablet) 150 Mg-150 Mg-200 Mg-10 Mg Tablet, 1 TAB PO QDAY 01/10/19 Tramadol Hcl (TRAMADOL HCL) 50 Mg Tablet, 50-100 MG PO Q4-6H for PAIN, TAB 01/10/19 Sertraline Hcl (ZOLOFT) 20 Mg/1 Ml Oral.conc, 20 MG PO QHS 01/10/19 Trazodone Hcl (TRAZODONE HCL) 50 Mg Tablet, 50 MG PO QHS 01/10/19 Fexofenadine Hcl (TAMELA ALLERGY) 60 Mg Tablet, 30 MG PO BID 10/28/18 Furosemide (LASIX) 20 Mg Tablet, 1 TAB PO PRN, TAB 10/28/18 Montelukast Sodium (SINGULAIR) 10 Mg Tablet, 1 TAB PO QDAY, TAB 10/28/18 Bimatoprost (LUMIGAN) 2.5 Ml Drops, 2.5 ML OP 10/28/18 Amlodipine Besylate (AMLODIPINE BESYLATE) 5 Mg Tablet, 0.5 TAB PO QDAY, TAB 10/28/18 Metoprolol Succinate (METOPROLOL SUCCINATE) 50 Mg Tab.er.24h, 4 TAB PO QDAY, TAB 10/28/18 Lisinopril (LISINOPRIL) 40 Mg Tablet, 40 MG PO QDAY, TAB 10/28/18 Discontinued Scripts Albuterol Sulfate 90 Mcg/Act (PROAIR HFA 90 MCG/ACT) 8.5 Gm Hfa.aer.ad, 2 PUFF IH Q4-6H, #1 INHALER Prov:ASTON CASE DO 10/28/18 Azithromycin (Z-PACK) 250 Mg Tablet, 0 PO QDAY, #6 DOSE-PACK Prov:ASTON CASE DO 10/28/18 Prednisone (PREDNISONE) 50 Mg Tablet, 50 MG PO QDAY for 4 Days, #4 TAB Prov:ASTON CASE DO 10/28/18 Past Medical/Surgical History History of substance abuse (JONELLE HOANG DO) Reviewed Nurses Notes: Yes Old Medical Records Reviewed: Yes (JONELLE HOANG DO) Hx Smoking: Yes Exposure to Second Hand Smoke?: No Hx Alcohol Use: Yes (JONELLE HOANG DO) Constitutional Vital Sign - Last 24 Hours 01/17/19 01/17/19 01/17/19 01/17/19 06:10 06:10 06:13 06:25 Temp 96.7 Pulse 94 93 Resp 20 B/P (MAP) 133/91 133/91 (105) Pulse Ox 91 99 90 O2 Delivery Room Air 01/17/19 01/17/19 01/17/19 01/17/19 06:31 06:40 06:55 07:10 Pulse 85 88 Resp 22 19 B/P (MAP) 145/108 (120) Pulse Ox 99 97 O2 Flow Rate 1.0 01/17/19 01/17/19 01/17/19 01/17/19 07:10 07:17 07:30 07:45 Pulse 87 81 82 Resp 17 17 14 B/P (MAP) 140/86 (104) 143/81 (101) Pulse Ox 83 98 99 01/17/19 01/17/19 01/17/19 01/17/19 08:00 08:15 08:30 08:45 Pulse 82 79 86 86 Resp 13 8 8 16 B/P (MAP) 147/84 (105) 146/88 (107) Pulse Ox 100 99 91 89 01/17/19 09:00 Pulse 88 Resp 19 B/P (MAP) 156/97 (116) Pulse Ox 89 (ASTON CASE DO) Physical Exam General Appearance: The patient is alert, has no immediate need for airway p rotection and no current signs of toxicity. Somnolent, stable vital signs, stable, pulse ox on room air. Response to painful stimulus. She received Ativan formula grams IV by EMS for his agitation HEENT: Pupils equal and round no injection., Oropharynx with out dental trauma Respiratory: Chest is non tender, lungs are clear to auscultation. Cardiac: regular rate and rhythm, no murmur Gastrointestinal: Abdomen is soft and non tender, no masses, bowel sounds normal. Musculoskeletal: Neck: Neck is supple and non tender. Extremities have full range of motion and are non tender. Skin: No rashes or lesions. Neuro, response to painful stimulus. DIFFERENTIAL DIAGNOSIS: After history and physical exam differential diagnosis was considered for altered mental status including but not limited to hypoglycemia, infectious process, electrolyte abnormality, head injury and intoxicants. (JONELLE HOANG DO) Physical Exam Please see Dr. Hoang's note (ASTON CASE DO) Medical Decision Making Data Points Result Diagram: 01/17/19 0600 01/17/19 0600 Laboratory Hematology Test 01/17/19 06:00 White Blood Count 6.8 k/uL (4.5-11.0) Red Blood Count 5.22 M/uL (4.00-5.60) Hemoglobin 15.7 g/dL (14.0-18.0) Hematocrit 47.0 % (42.0-52.0) Mean Corpuscular Volume 90.1 fL (80.0-96.0) Mean Corpuscular Hemoglobin 30.1 pg (26.0-33.0) Mean Corpuscular Hemoglobin Concent 33.5 g/dL (32.0-36.0) Red Cell Distribution Width 14.1 % (11.5-14.5) Platelet Count 209 K/uL (150-450) Mean Platelet Volume 9.8 fL (7.2-11.1) Neutrophils (%) (Auto) 70.7 % (39.4-72.5) Lymphocytes (%) (Auto) 18.1 % (17.6-49.6) Monocytes (%) (Auto) 9.8 % (4.1-12.4) Eosinophils (%) (Auto) 0.6 % (0.4-6.7) Basophils (%) (Auto) 0.8 % (0.3-1.4) Nucleated RBC Relative Count (auto) 0.0 /100WBC Neutrophils # (Auto) 4.8 K/uL (2.0-7.4) Lymphocytes # (Auto) 1.2 K/uL (1.3-3.6) L Monocytes # (Auto) 0.7 K/uL (0.3-1.0) Eosinophils # (Auto) 0.0 K/uL (0.0-0.5) Basophils # (Auto) 0.1 K/uL (0.0-0.1) Nucleated RBC Absolute Count (auto) 0.00 K/uL Chemistry Test 01/17/19 06:00 01/17/19 06:45 01/17/19 08:29 Sodium Level 141 mmol/L (137-145) Potassium Level 3.5 mmol/L (3.5-5.0) Chloride Level 100 mmol/L (98-107) Carbon Dioxide Level 24 mmol/L (22-30) Blood Urea Nitrogen 31 mg/dl (9-21) Creatinine 2.00 mg/dl (0.66-1.25) Glomerular Filtration Rate Calc 34.1 Random Glucose 116 mg/dl (75-110) Calcium Level 9.7 mg/dl (8.4-10.2) Total Bilirubin 0.5 mg/dl (0.2-1.3) Aspartate Amino Transf (AST/SGOT) 35 U/L (0-35) Alanine Aminotransferase (ALT/SGPT) 45 U/L (0-56) Alkaline Phosphatase 88 U/L (0-126) Ammonia < 9 UMOL/L (9-33) Troponin I < 0.012 ng/ml Total Protein 8.1 g/dl (6.3-8.2) Albumin 4.6 g/dl (3.5-5.0) Thyroid Stimulating Hormone (TSH) 2.81 uIU/ml (0.46-4.68) Whole Blood Glucose 73 mg/DL (75-110) Lactate 2.4 mmol/L (0.7-2.1) Toxicology Test 01/17/19 06:00 01/17/19 06:21 Serum Alcohol < 10 mg/dl Urine Opiates Screen Negative Urine Barbiturates Screen Negative Ur Tricyclic Antidepressants Screen Negative Urine Phencyclidine Screen Negative Urine Amphetamines Screen Positive Urine Benzodiazepines Screen Negative Urine Cocaine Screen Negative Urine Cannabinoids Screen Negative Urinalysis Test 01/17/19 06:21 Urine Color Yellow Urine Clarity Cloudy Urine pH 5.0 pH (4.8-9.5) Urine Specific [place] 1.024 Urine Protein Negative mg/dL (NEGATIVE) Urine Glucose (UA) Negative mg/dL (NEGATIVE) Urine Ketones Negative mg/dL (NEGATIVE) Urine Blood Small (NEGATIVE) Urine Nitrite Negative (NEGATIVE) Urine Bilirubin Negative (NEGATIVE) Urine Urobilinogen Negative mg/dL (0.2-1.9) Urine Leukocyte Esterase Negative (NEGATIVE) Urine RBC 5 /HPF (0-2/HPF) Urine WBC 5 /HPF (0-5/HPF) Urine Squamous Epithelial Cells Few /LPF (</=FEW) Urine Bacteria Few /HPF (NONE-FEW) Urine Hyaline Casts Few /LPF (NONE-FEW) Urine Granular Casts Few /LPF (NONE) Urine Mucus Few /HPF (NONE-FEW) (ASTON CASE DO) EKG/Imaging EKG Interpretation 12 lead EKG: Rhythm: Normal sinus rhythm [place]: normal QRS: QRS meets voltage criteria for left ventricular hypertrophy, prolonged QT ST segments: Nonspecific ST and T-wave changes, consider lateral ischemia (JONELLE HOANG DO) EKG Interpretation PATIENT NAME: LOBO PEREZ DOB: [id number] MR: [id number] V: [id number] EXAM DATE: ORDERING PHYSICIAN: JONELLE HOANG TECHNOLOGIST: AA Test Reason : DRUG USE Blood Pressure : / mmHG Vent. Rate : 082 BPM Atrial Rate : 082 BPM P-R Int : 138 ms QRS Dur : 094 ms QT Int : 420 ms P-R-T Axes : 072 021 177 degrees QTc Int : 490 ms Normal sinus rhythm Voltage criteria for left ventricular hypertrophy ST and Marked T wave abnormality, consider lateral ischemia Prolonged QT Abnormal ECG When compared with ECG of 28-OCT-2018 15:45, Vent. rate has increased BY 28 BPM T wave inversion now evident in Anterior leads Referred By: KARI Confirmed By: Imaging PATIENT NAME: Lobo Perez : 1955 MR: [id number] V: [id number] EXAM DATE: ORDERING PHYSICIAN: JONELLE HOANG TECHNOLOGIST: Location: [facility] Patient: Lobo Perez DOB: 1955 Visit/Account:[id number] Date of Sevice: 01/17/2019 EXAMINATION: CT Head without intravenous contrast HISTORY: Altered mental status. TECHNIQUE: Axial images were obtained from the skull base to the vertex without intravenous contrast. Sagittal and coronal reformatted images are also submitted. One of the following dose optimization techniques was utilized in the p erformance of this exam: Automated exposure control; adjustment of the mA and/or kV according to the patient's size; or use of an iterative reconstruction technique. Specific details can be referenced in the facility's radiology CT exam operational policy. COMPARISON: 01/09/2019. FINDINGS: Brain volume: Mild to moderate generalized brain parenchymal volume loss. Ventricles: Negative. Acute ischemic changes: None. Hemorrhage: None. Masses / edema: None. 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 White matter: Negative. Vessels: Mild calcified plaque in the carotid siphons. Normal density in the dural venous sinuses. Extra-axial: Negative. Calvarium / skull base: Negative. Visualized sinuses / orbits: Stable 9 x 6 mm low density subcutaneous mass overlying the left zygomatic arch, most likely a benign cyst. IMPRESSION: 1. No acute intracranial abnormality. 2. 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 3. Stable 9 x 6 mm low-density subcutaneous mass overlying the left zygomatic arch, most likely a benign cyst. Report Dictated By: Ellis Berger MD at 01/17/2019 7:33 AM Report E-Signed By: Ellis Berger MD at 01/17/2019 7:40 AM WSN:[id number] (ASTON CASE DO) ED Course/Re-evaluation Clinical Indication for ER IV: Hydration, IV Access (JONELLE HOANG DO) ED Course I assumed patient care from Dr. Hoang at change of shift at 0700. Patient's lactate came back elevated, creatinine was bumped from prior the likely prerenal in etiology. Patient was given 2 L normal saline bolus, repeat lactate was collected. CT imaging showed no acute intracranial findings. Patient had been given 4 mg of Ativan prior to arrival. Repeat lactate was 2.4, likely secondary to significant dehydration compared to 4.6. Patient was afebrile, hemodynamically stable. Patient was alert and oriented at time of discharge in no acute distress. Close PCP follow-up recommended for lab trending, return precautions provided. Decision to Disposition Date: Jan 17, 2019 Decision to Disposition Time: 09:30 (ASTON CASE DO) Depart Departure Latest Vital Signs Vital Signs Date Time Temp Pulse Resp B/P (MAP) Pulse Ox O2 Delivery O2 Flow Rate FiO2 01/17/19 09:00 88 19 156/97 (116) 89 01/17/19 07:10 1.0 01/17/19 06:10 96.7 Room Air (ASTON CASE DO) Impression: Primary Impression: Altered mental status, unspecified Additional Impressions: Acute psychosis History of methamphetamine abuse Condition: Improved Disposition: HOME OR SELF-CARE Patient Instructions: Dehydration (ED), Methamphetamine Abuse (ED) Additional Instructions: Please drink plenty of water. Please consider cessation of substance use. Today your found be significantly dehydrated, please follow-up with her primary care provider in order to recheck labs. Please return promptly if you develop fevers, headaches, visual changes, inability keep down food or fluids. Problem Qualifiers Primary Impression: Altered mental status, unspecified Altered mental status type: disorientation Qualified Codes: R41.0 - Disorientation, unspecified JONELLE HOANG DO Jan 17, 2019 06:15 ASTON CASE DO Jan 17, 2019 07:06
[2019-01-17] MEDS ORDERED: NS(*) 0.9% 1000 ML BAG 1,000 ML IV ONE ×2 (06:20→07:20)
[2019-01-17 06:31] LABS: PLATELET COUNT, AUTOMATED 209 K/uL (150-450)
--- NOTE | 2019-01-17 07:14 | EKG ---
FACILITY: [facility] PATIENT NAME: ZEINA PEREZ : [id number] MR: [id number] V: [id number] EXAM DATE: ORDERING PHYSICIAN: JONELLE PIERCE TECHNOLOGIST: RETA Test Reason : DRUG USE Blood Pressure : / mmHG Vent. Rate : 082 BPM Atrial Rate : 082 BPM P-R Int : 138 ms QRS Dur : 094 ms QT Int : 420 ms P-R-T Axes : 072 021 177 degrees QTc Int : 490 ms Normal sinus rhythm Voltage criteria for left ventricular hypertrophy ST and Marked T wave abnormality, consider lateral ischemia Prolonged QT Abnormal ECG When compared with ECG of 28-OCT-2018 15:45, T wave inversion now evident in Anterior leads Confirmed by Addy Kenney ([id number]) on 01/18/2019 12:35:38 AM Referred By: KARI Confirmed By:dAdy Rosales
--- NOTE | 2019-01-17 07:48 | RADIOLOGY IMAGING REPORT ---
FACILITY: [facility] [place] PATIENT NAME: Lobo Adams : 1955 MR: [id number] V: [id number] EXAM DATE: ORDERING PHYSICIAN: JONELLE PIERCE TECHNOLOGIST: Location: [facility] [place] Patient: Lobo Adams : 1955 Visit/Account:[id number] Date of Sevice: 01/17/2019 EXAMINATION: CT Head without intravenous contrast HISTORY: Altered mental status. TECHNIQUE: Axial images were obtained from the skull base to the vertex without intravenous contrast . Sagittal and coronal reformatted images are also submitted. One of the following dose optimization techniques was utilized in the performance of this exam: Autom ated exposure control; adjustment of the mA and/or kV according to the patient's size; or use of an i terative reconstruction technique. Specific details can be referenced in the facility's radiology C T exam operational policy. COMPARISON: 01/09/2019. FINDINGS: Brain volume: Mild to moderate generalized brain parenchymal volume loss. Ventricles: Negative. Acute ischemic changes: None. Hemorrhage: None. Masses / edema: None. 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 White matter: Negative. Vessels: Mild calcified plaque in the carotid siphons. Normal density in the dural venous sinuses. Extra-axial: Negative. Calvarium / skull base: Negative. Visualized sinuses / orbits: Stable 9 x 6 mm low density subcutaneous mass overlying the left zygoma tic arch, most likely a benign cyst. IMPRESSION: 1. No acute intracranial abnormality. 2. 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 3. Stable 9 x 6 mm low-density subcutaneous mass overlying the left zygomatic arch, most likely a car ign cyst. Report Dictated By: Ellis Berger MD at 01/17/2019 7:33 AM Report E-Signed By: Ellis Berger MD at 01/17/2019 7:40 AM WSN:[id number]
[2019-01-17 13:49] VITALS: BP 166/107
== END 2019-01-17 14:12 | disposition home or self-care (01) ==
LOC: ER 06:16
DX: R41.82 Altered mental status, unspecified (principal); F23 Brief psychotic disorder; F15.10 Other stimulant abuse, uncomplicated
CPT/HCPCS: 36416; 36600; 70450; 80305; 80320; 81001; 82140; 82375; 82803; 82948; 83605; 84443; 84484; 85025; 93005; 96360; 96361; 99284; J7030; 82040; 82247; 82310; 82374; 82435; 82565; 82947; 84075; 84132; 84155; 84295; 84450; 84460; 84520